=== PATIENT | female | born 1985 | race Caucasian/White ===

== ENCOUNTER 2018-04-23 22:01 | Inpatient (IN) | payer OTHER, SELFPAY ==
[2018-04-23] MEDS ORDERED: NS / Oxytocin 40 units/1000ml 0 ML ONE (23:18)
[2018-04-23] MEDS ORDERED: Lidocaine 1% (PF) 30 ML VIAL ONE (23:18)
[2018-04-23] MEDS ORDERED: Oxytocin 10 UNITS/ML VIAL ONE (23:19)
[2018-04-23] MEDS ORDERED: Misoprostol 200 MCG TAB ONE (23:21)
[2018-04-23] MEDS ORDERED: NS / Oxytocin 40 units/1000ml 1,000 ML ONE (23:21)
[2018-04-23] MEDS ORDERED: Methylergonovine 0.2 MG/ML VIAL ONE (23:21)
[2018-04-23] MEDS ORDERED: NS / Oxytocin 40 units/1000ml 1,000 ML IV PRN (23:32)
[2018-04-23] MEDS ORDERED: Ondansetron HCl/PF 4 MG/2 ML Vial IVP PRN (23:32)
[2018-04-23] MEDS ORDERED: Promethazine HCl 25 MG/ML VIAL IM PRN (23:32)
[2018-04-23] MEDS ORDERED: Lactated Ringer's 1,000 ML IV PRN (23:32)
[2018-04-23] MEDS ORDERED: Lidocaine 1% (PF) 30 ML VIAL SC PRN (23:32)
[2018-04-23] MEDS ORDERED: Carboprost 250 MCG/ML AMP IM PRN (23:39)
[2018-04-23] MEDS ORDERED: Misoprostol 200 MCG TAB PR PRN (23:39)
[2018-04-23] MEDS ORDERED: Diphenoxylate HCl/Atropine Tablet PO PRN ×2 (23:39)
[2018-04-23] MEDS ORDERED: Methylergonovine 0.2 MG/ML VIAL IM PRN (23:39)
[2018-04-23] MEDS ORDERED: Ibuprofen 800 MG TAB PO PRN (23:39)
[2018-04-23] MEDS ORDERED: HYDROcodone/Acetaminophen 5/325 mg Tablet PO PRN ×2 (23:39)
[2018-04-23 23:49] LABS: Hemoglobin 11.8 g/dL (12.0-16.0); Mean Corpuscular HGB CONC 33.1 g/dL (32.0-36.0); Mean Corpuscular Volume 78.6 fL (78.0-98.0); Mean Platelet Volume 7.8 fL (7.4-10.4); Platelet Count 267 thou/uL (130-400); RBC Distribution Width 13.7 % (11.5-14.5); Red Blood Cell (RBC) Count 4.52 mill/uL (4.20-5.40); White Blood Cell (WBC) Count 14.4 thou/uL (4.8-10.8)
[2018-04-24 00:18] LABS: Syphilis Antibody Nonreactive (Nonreactive); Syphilis Antibody Index 0.06 S/CO (<1.00 Non-Reactive)
[2018-04-24 00:19] LABS: HBSAg Index 0.18 S/CO (0-0.99); HIV (1/2) Antibody/Antigen Non-Reactive (NonReactive); HIV 1/2 INDEX 0.07 S/CO (<1.00); Hep B Surf Ag Non-Reactive S/CO (NonReactive)
--- NOTE | 2018-04-24 00:32 | PDOC.LDHP ---
Labor and Delivery H&P Chief complaint: contractions, loss of fluid HPI: patient started contractions this evening and arrived to the hospital with contraction every three minutes. Her water broke in the ER Current gestational age (weeks): 39 Due date: 04/25/18 Grav: 4 Para: 3 OB History Details: G1 8#3oz G2 9+# with PPH G3 9+# with PPH - transfer EMS to hospital G4 current Current complications: none Abnormal US findings: No Past Medical History: Depression on Lexapro Current medications: other (lexapro) Previous surgical history: other (eye surgery for strabismus) Allergies/Adverse Reactions: Allergies Allergy/AdvReac Type Severity Reaction Status Date / Time No Known Allergies Allergy Verified 04/24/18 01:59 Social history: none - Physical Exam Vital signs reviewed and normal: yes General: breathing through contractions Heart: RRR Lungs: nonlabored breathing Abdomen: gravid Extremeties: no edema FHT: category 1 [place] contractions every: q3 - Vaginal Exam cm dilated: 8 Effacement: 100% Station: 0 - OB Labs Blood type: O RH: positive Antibody Screen: negative HIV: negative RPR: negative HEPSAg: negative 1 hour GCT: negative GBS: negative Urine drug screen: not done - Assessment L&D Assessment: term rupture in membranes (light meconium) - Plan Plan: admit to L&D -: low intervention protocol anticipate anticipate PPH. pitocin, methergine, cytotec, hemabate at bedside.
--- NOTE | 2018-04-24 00:41 | PDOC.OPDEL ---
OB Operative/Delivery Note Delivery Dr/Surgeon: Thi Clarke CNM Pre-Delivery Diagnosis: active labor Procedure/Post Delivery Dx: spontaneous vaginal delivery Weeks gestation: 39 Anesthesia: none - Findings A Sex: male Weight: 9 lb 6 oz - 1 min: 8 - 5 min: 10 - Additional Findings/Plan Placenta delivered: spontaneous Repaired Obstetrical Laceration: none Estimated blood loss: 200 Post delivery plan: routine recovery
[2018-04-24] MEDS ORDERED: NS / Oxytocin 40 units/1000ml 1,000 ML ONE (01:13)
[2018-04-24 02:06] VITALS: BMI 32.0
[2018-04-24] MEDS ORDERED: Methylergonovine 0.2 MG/ML VIAL IM PRN (03:49)
[2018-04-24] MEDS ORDERED: NS / Oxytocin 40 units/1000ml 1,000 ML IV SCH (03:49)
[2018-04-24] MEDS ORDERED: Milk Of Magnesia 30 ML UDCUP PO PRN (03:49)
[2018-04-24] MEDS ORDERED: Bisacodyl 10 MG SUPP PR PRN (03:49)
[2018-04-24] MEDS ORDERED: HYDROcodone/Acetaminophen 5/325 mg Tablet PO PRN ×2 (03:49)
[2018-04-24] MEDS ORDERED: Benzocaine/Menthol 20-0.5% 60 ML CAN TOP PRN (03:49)
[2018-04-24] MEDS ORDERED: Ondansetron HCl/PF 4 MG/2 ML Vial IVP PRN (03:49)
[2018-04-24] MEDS ORDERED: Misoprostol 200 MCG TAB VAG SCH (04:15)
[2018-04-24] MEDS ORDERED: Measles/Mumps/Rubella 10 MCG/0.5 ML VIAL SC ONE (04:15)
[2018-04-24] MEDS ORDERED: Varicella virus, LIVE 0.5 ML VIAL SC ONE (04:15)
[2018-04-24] MEDS ORDERED: Adacel (T-DAP) 0.5 ML VIAL IM ONE (04:15)
[2018-04-24] MEDS ORDERED: Ibuprofen 800 MG TAB PO SCH (06:00)
[2018-04-24] MEDS ORDERED: Ferrous Sulfate 325 MG TAB PO SCH (08:00)
[2018-04-24] MEDS ORDERED: Docusate Calcium (SURFAK) 240 MG CAP PO SCH (09:00)
[2018-04-24 11:48] VITALS: BP 110/64; TEMP 97.9
--- NOTE | 2018-04-24 14:14 | PDOC.PP ---
Post Progress Note Post Day #: 0 Subjective: feeling well. is painful, but going well. Would like to discharge today PO intake tolerated: yes Flatus: yes Ambulation: yes Vital Signs (12 hours) Temp Pulse Resp BP BP 04/24/18 12:00 97.9 F 92 20 04/24/18 11:47 97.9 F 92 20 110/64 04/24/18 08:10 98.0 F 80 20 115/55 L 04/24/18 08:00 98.0 F 80 20 04/24/18 07:40 98.0 F 80 20 04/24/18 05:00 98.8 F 88 18 110/60 04/24/18 04:00 97.8 F 84 18 120/60 04/24/18 03:03 98.3 F 89 20 112/57 L Weight Weight 217 lb - Physical Examination General: NAD Cardiovascular: RRR Respiratory: clear to auscultation bilaterally, non-labored breathing Abdominal: + bowel sounds, lochia (moderate) Fundus firm & at: -2 Extremities: negative homans (B) Skin: no rash Neurological: no gross focal deficits Psychiatric: A&Ox3, normal affect Result Diagrams: 04/23/18 23:15 Additional Labs: Post Labs Blood Type O POSITIVE 04/23/18 23:15 Hep Bs Antigen Non-Reactive S/CO (NonReactive) 04/23/18 23:15 (1) (spontaneous vaginal delivery) Code(s): O80 - ENCOUNTER FOR FULL-TERM UNCOMPLICATED DELIVERY Status: Acute - Assessment/Plan discharge home today if infant is discharged
== END 2018-04-24 14:50 | disposition home or self-care (01) | DRG 775 ==
LOC: L&D/OP 22:01 → L&D-LIB 23:32 → 3SW 04-24 03:05
PROVIDERS: ADMIT Obstetrics & Gynecology; ATTEND Obstetrics & Gynecology
PROC: 10E0XZZ Delivery of Products of Conception, External Approach (ICD-10-PCS; principal; 2018-04-24)
DX: O77.0 Labor and delivery complicated by meconium in amniotic fluid (principal); Z37.0 Single live birth; Z3A.39 39 weeks gestation of pregnancy
CPT/HCPCS: 85027; 86780; 86850; 86900; 86901; 87340; 87389; 90716; 99285; J2001; J2210; J2590